=== PATIENT | male | born 1960 | race Caucasian/White ===

== ENCOUNTER 2022-04-12 10:29 | Emergency (ER) | payer OTHER ==
[2022-04-12] MEDS ORDERED: Ketorolac 30 MG/ML SDV IM ONE (11:24)
[2022-04-12 12:01] LABS: ESTIMATED GFR 101 mL/min (>60)
== END 2022-04-12 13:30 | disposition home or self-care (01) ==
LOC: JP.ED 10:29
DX: R10.31 Right lower quadrant pain (principal)
CPT/HCPCS: 36415; 74176; 80048; 85025; 86140; 96372; 99282; 99284; J1885